=== PATIENT | female | born 1980 | race Asian ===

== ENCOUNTER 2020-04-07 16:24 | Emergency (ER) | payer OTHER ==
[~2020-04-07] VITALS: Ht 157.5 cm; Wt 67.6 kg
[2020-04-07 16:36] VITALS: BP 109/46
== END 2020-04-07 19:22 | disposition left against medical advice (07) ==
LOC: ER 16:24
DX: R68.84 Jaw pain (principal); Z53.21 Procedure and treatment not carried out due to patient leaving prior to being seen by health care provider